=== PATIENT | female | born 1970 | race Caucasian/White ===

== ENCOUNTER 2021-12-09 00:40 | Emergency (ER) | payer OTHER ==
[~2021-12-09] VITALS: Ht 152.4 cm; Wt 59.0 kg
[2021-12-09 00:47] VITALS: BP 136/84
--- NOTE | 2021-12-09 00:58 | NUR ---
AMBULATED TO BED 12 FROM TRIAGE
--- NOTE | 2021-12-09 01:20 | NUR ---
PATIENT IN BED WITH DAUGHTER AT BEDSIDE. BED IN LOWEST POSITION, ONE SIDERAIL UP FOR SAFETY. ALL NEEDS MET AT THIS TIME
--- NOTE | 2021-12-09 01:31 | NUR ---
Female Powder Mixer accompanied female patient for Breast exam by Dr. Barnard
[2021-12-09] MEDS ORDERED: KETOROLAC 30 MG/ML VIAL IM ONE (01:40)
--- NOTE | 2021-12-09 01:45 | NUR ---
51/F BIB SELF C/O LEFT BREAST PAIN 9 X 3 DAYS. PATIENT STATED SHE HAS A HISTORY OF GETTING A PIMPLE ON THE NIPPLE, SHE RECENTLY GOT ONE ABOUT 4 MONTHS AGO, AND THEN IT WENT AWAY. PATIENT DENIES ANY OTHER BREAST CHANGES AT THIS TIME. PATIENT DENIES SOB, CP, NAUSEA, VOMITING, DIARRHEA OR CONSTIPATION AT THIS TIME. ALLERGIES SEE ABOVE
--- NOTE | 2021-12-09 01:57 | NUR ---
The patient's care was reviewed and supervised by Batsheva Loomis RN, RN.
--- NOTE | 2021-12-09 01:58 | NUR ---
Patient discharged with v/s stable. Written and verbal after care instructions given on cellulitis and explained. Patient verbalized understanding. Ambulatory with steady gait. Advised to follow up with PMD.
[2021-12-09 01:59] VITALS: BP 138/78
== END 2021-12-09 01:58 | disposition home or self-care (01) ==
LOC: MED 00:40
DX: N64.4 Mastodynia (principal); R23.8 Other skin changes; I10 Essential (primary) hypertension
CPT/HCPCS: 96372; 99283; J1885

== ENCOUNTER 2023-11-22 15:27 | Emergency (ER) | payer OTHER ==
[~2023-11-22] VITALS: Ht 149.9 cm; Wt 70.3 kg
[2023-11-22 15:52] VITALS: BP 94/46; PULSE 89; RESP 18; TEMP 97.4; O2SAT 96
[2023-11-22] MEDS ORDERED: NAPR-1704 PO (18:58)
== END 2023-11-22 19:15 | disposition home or self-care (01) ==
LOC: MED 15:27
DX: S92.344A Nondisplaced fracture of fourth metatarsal bone, right foot, initial encounter for closed fracture (principal); I10 Essential (primary) hypertension; E78.5 Hyperlipidemia, unspecified; Z98.890 Other specified postprocedural states; Z79.899 Other long term (current) drug therapy; Z88.0 Allergy status to penicillin; W01.0XXA Fall on same level from slipping, tripping and stumbling without subsequent striking against object, initial encounter; Y92.000 Kitchen of unspecified non-institutional (private) residence as the place of occurrence of the external cause; Y93.89 Activity, other specified; Y99.8 Other external cause status
CPT/HCPCS: 29515; 73610; 73630; 99284